=== PATIENT | female | born 1980 | race Caucasian/White ===

== ENCOUNTER 2018-03-24 12:29 | Inpatient (IN) | payer OTHER ==
[~2018-03-24] VITALS: Ht 157.5 cm; Wt 84.4 kg
[~2018-03-24 12:29] MED LIST: AZAT50TA20 PO; FLUO20CA16 PO; MEDR150D3 IM; PRED20TA PO
[2018-03-24] MEDS ORDERED: ONDANSETRON PF 4 MG/2 ML VIAL. IV ONE (13:45)
[2018-03-24] MEDS ORDERED: fentaNYL PF VIAL 100 MCG/2 ML VIAL IV ONE (13:45)
[2018-03-24] MEDS ORDERED: IV NORMAL SALINE 1000ML BAG 1,000 ML IV ONE (13:45)
--- NOTE | 2018-03-24 13:46 | PHYS DOC ---
Past Medical History Past Medical History: Depression, Other Additional Past Medical Histor: chrons Past Surgical History: Tonsillectomy, Other Additional Past Surgical Histo: rectal abscess I&D Alcohol Use: Occasionally Drug Use: None Adult General Chief Complaint Chief Complaint: ABDOMINAL PAIN HPI HPI 37-year-old female presents to ER for complaints of left lower abdominal pain. [facility] and was found to have a fever of 102 and so she was sent to the ER for evaluation. Patient reports she has history of Crohn's and since mid February has been having increased lower abdominal pain. Patient states she had CT of abdomen and pelvis on 03/03/18 which showed pyelonephritis and so she was treated with Levaquin. Patient states pain increased so she was seen in the ER at [facility] on and was started on Flagyl for one week treatment. Patient reports she had been on prednisone tapered dose and has been off of that for 1 week. Patient has Mirena so does not have monthly menstrual cycles. Patient states she did colonoscopy prep last night and has had 1 episode of vomiting this morning. Patient at triage had temperature 98.6 which was rechecked during this evaluation by this provider and oral temperature was 98.6 again. Heart rate tachycardia 106 during exam. Patient is requesting admission. Review of Systems Review of Systems Constitutional: Reported [facility] Eyes: Denies change in visual acuity, redness, or eye pain [] HENT: Denies nasal congestion or sore throat [] Respiratory: Denies cough or shortness of breath [] Cardiovascular: Denies chest pain or palpitations GI: Denies bloody stools or diarrhea. Reports lower abd pain- worse on left side with N/V : Denies dysuria or hematuria [] Musculoskeletal: Denies back pain or joint pain [] Integument: Denies rash, swelling or skin lesions [] Neurologic: Denies headache, focal weakness or sensory changes [] All other systems were reviewed and found to be within normal limits, except as documented in this note. Current Medications Current Medications Current Medications Medications (Trade) Dose Ordered Sig/Dean Start Time Stop Time Status Last Admin Dose Admin Acetaminophen/ Hydrocodone Bitart (Lortab 5/325) 1 tab PRN Q4HRS PRN 03/24/18 16:30 Cancel Al Hydroxide/Mg Hydroxide (Mylanta Plus Xs) 30 ml PRN Q3HRS PRN 03/24/18 16:30 Ciprofloxacin/ Dextrose 200 ml @ 200 mls/hr 1X ONCE 03/24/18 17:15 03/24/18 18:14 UNV Fentanyl Citrate (Fentanyl 2ml Vial) 50 mcg 1X ONCE 03/24/18 13:45 03/24/18 13:46 DC 03/24/18 14:26 50 MCG Info (CONTRAST GIVEN -- Rx MONITORING) 1 each PRN DAILY PRN 03/24/18 15:30 03/26/18 15:29 Info (Non-Icu Electrolyte Protocol) 1 ea PRN DAILY PRN 03/24/18 16:30 Iohexol (Omnipaque 300 Mg/ml) 75 ml 1X ONCE 03/24/18 15:15 03/24/18 15:16 DC Magnesium Hydroxide (Milk Of Magnesia) 2,400 mg PRN Q12HR PRN 03/24/18 16:30 Metronidazole 100 ml @ 100 mls/hr 1X ONCE 03/24/18 17:15 03/24/18 18:14 UNV Ondansetron HCl (Zofran) 4 mg PRN Q6HRS PRN 03/24/18 16:30 Potassium Chloride/Dextrose/ Sod Cl 1,000 ml @ 75 mls/hr 1X ONCE 03/24/18 17:00 03/25/18 06:19 03/24/18 17:39 75 MLS/HR Prochlorperazine Edisylate (Compazine) 10 mg PRN Q6HRS PRN 03/24/18 16:30 Sodium Chloride 1,000 ml @ 100 mls/hr Q10H 03/24/18 16:17 Zolpidem Tartrate (Ambien) 5 mg PRN QHS PRN 03/24/18 16:30 Allergies Allergies Allergies Coded Allergies Type Severity Reaction Last Updated Verified No Known Drug Allergies 05/13/13 No Physical Exam Physical Exam Constitutional: Well developed, well nourished, no acute distress, non-toxic appearance. Flushed facial tone/fatigued appearance HENT: Normocephalic, atraumatic, mucous membranes pink/dry, nose normal. [] Eyes: Pupils equal, conjunctiva normal, no discharge. [] Neck: Normal range of motion, no tenderness, supple, no stridor. [] Cardiovascular: Tachycardic heart rate/rhythm, no murmur [] Lungs & Thorax: Bilateral breath sounds clear to auscultation. Resp. equal/ nonlabored Abdomen: Bowel sounds normal, soft-no distention or rigidity, tenderness from mid umbilical into left side abdomen pain is worse in left lower quadrant, no rebound tenderness, no masses, no pulsatile masses. [] Skin: Warm, dry Back: No tenderness, no CVA tenderness. [] Extremities: No tenderness, no cyanosis, no clubbing, ROM intact, no edema. [] Neurologic: Alert and oriented X 3, normal motor function, normal sensory function, no focal deficits noted. [] Psychologic: Affect normal, judgement normal, mood normal. [] Current Patient Data Vital Signs Vital Signs Date Time Temp Pulse Resp B/P (MAP) Pulse Ox O2 Delivery O2 Flow Rate FiO2 03/24/18 17:29 96 16 118/69 (85) 99 Room Air 03/24/18 14:59 99.2 99.2 Lab Values Laboratory Tests Test 03/24/18 12:51 03/24/18 14:01 03/24/18 14:15 Urine Collection Type Unknown Urine Color Raven Urine Clarity Turbid Urine pH 8.0 Urine Specific [place] 1.020 Urine Protein 30 mg/dL (NEG-TRACE) Urine Glucose (UA) Negative mg/dL (NEG) Urine Ketones (Stick) 40 mg/dL (NEG) Urine Blood Moderate (NEG) Urine Nitrite Negative (NEG) Urine Bilirubin Small (NEG) Urine Urobilinogen Dipstick 0.2 mg/dL (0.2 mg/dL) Urine Leukocyte Esterase Small (NEG) Urine RBC Rare /HPF (0-2) Urine WBC 1-4 /HPF (0-4) Urine Squamous Epithelial Cells Mod /LPF Urine Bacteria Moderate /HPF (0-FEW) POC Urine HCG, Qualitative Hcg negative (Negative) White Blood Count 13.1 x10^3/uL (4.0-11.0) H Red Blood Count 4.43 x10^6/uL (3.50-5.40) Hemoglobin 13.3 g/dL (12.0-15.5) Hematocrit 38.2 % (36.0-47.0) Mean Corpuscular Volume 86 fL (79-100) Mean Corpuscular Hemoglobin 30 pg (25-35) Mean Corpuscular Hemoglobin Concent 35 g/dL (31-37) Red Cell Distribution Width 13.6 % (11.5-14.5) Platelet Count 394 x10^3/uL (140-400) Neutrophils (%) (Auto) 70 % (31-73) Lymphocytes (%) (Auto) 20 % (24-48) L Monocytes (%) (Auto) 10 % (0-9) H Eosinophils (%) (Auto) 0 % (0-3) Basophils (%) (Auto) 0 % (0-3) Neutrophils # (Auto) 9.1 x10^3uL (1.8-7.7) H Lymphocytes # (Auto) 2.6 x10^3/uL (1.0-4.8) Monocytes # (Auto) 1.3 x10^3/uL (0.0-1.1) H Eosinophils # (Auto) 0.1 x10^3/uL (0.0-0.7) Basophils # (Auto) 0.1 x10^3/uL (0.0-0.2) Sodium Level 141 mmol/L (136-145) Potassium Level 3.2 mmol/L (3.5-5.1) L Chloride Level 102 mmol/L (98-107) Carbon Dioxide Level 30 mmol/L (21-32) Anion Gap 9 (6-14) Blood Urea Nitrogen 8 mg/dL (7-20) Creatinine 0.8 mg/dL (0.6-1.0) Estimated GFR (Cockcroft-Gault) 81.6 BUN/Creatinine Ratio 10 (6-20) Glucose Level 82 mg/dL (70-99) Calcium Level 9.0 mg/dL (8.5-10.1) Total Bilirubin 0.4 mg/dL (0.2-1.0) Aspartate Amino Transferase (AST) 12 U/L (15-37) L Alanine Aminotransferase (ALT) 17 U/L (14-59) Alkaline Phosphatase 88 U/L (46-116) Total Protein 7.6 g/dL (6.4-8.2) Albumin 2.7 g/dL (3.4-5.0) L Albumin/Globulin Ratio 0.6 (1.0-1.7) L Lipase 43 U/L (73-393) L Thyroid Stimulating Hormone (TSH) 0.083 uIU/mL (0.358-3.74) L Free Thyroxine 1.19 ng/dL (0.76-1.46) Laboratory Tests 03/24/18 14:15 Laboratory Tests 03/24/18 14:15 EKG EKG [] Radiology/Procedures Radiology/Procedures PROCEDURE: CT ABD PELV W/ IV CONTRST ONLY EXAM: Abdomen and pelvis CT with intravenous contrast. HISTORY: Left lower quadrant pain. TECHNIQUE: Computed tomographic images of the abdomen and pelvis were obtained following the administration of 75 cc Omnipaque 300 intravenous contrast. Multiplanar reformatting was performed. *One or more of the following individualized dose reduction techniques were utilized for this examination: 1. Automated exposure control. 2. Adjustment of the mA and/or kV according to patient size. 3. Use of iterative reconstruction technique. COMPARISON: 05/13/2013. FINDINGS: Evaluation of the lower thorax demonstrates right middle lobe and lingular atelectasis or scarring. There is no infiltrate or pleural effusion. There is a 2.8 cm hypodense lesion within the right hepatic lobe adjacent to the falciform ligament, stable compared to the prior study and possibly due to geographic fatty deposition. The pancreas, gallbladder, spleen, and adrenal glands are unremarkable. There is renal cortical lobulation due to scarring. There is a 1 mm nonobstructing stone within the mid zone of the right kidney. There is no appendicitis. There is circumferential colonic wall thickening with surrounding pericolic stranding from the proximal transverse colon to the rectosigmoid junction. There is no clear involvement of the terminal ileum. There are prominent retroperitoneal and mesenteric lymph nodes. There is an intrauterine contraceptive device in expected position. The ovaries are located within the bilateral lower quadrants. There is no suspicious osseous lesion. IMPRESSION: 1. Acute colitis of infectious or inflammatory etiologies from the proximal transverse colon to the rectosigmoid junction. There is no clear involvement of the terminal ileum. There are prominent associated pericolonic lymph nodes. 2. Bilateral renal cortical lobulation likely due to scarring. There is a 1 mm nonobstructing stone within the right kidney. 3. Stable 2.8 cm hypodense lesion within the right hepatic lobe along the falciform ligament. The nearly 5 year course of stability favors benign geographic fatty infiltration. This can likely be confirmed with a hepatic sonogram. Electronically signed by: Vaishali Allen MD (03/24/2018 3:39 PM) [facility] DICTATED and SIGNED BY: VAISHALI ALLEN MD DATE: 03/24/18 1534 Course & Med Decision Making Course & Med Decision Making Pertinent Labs and Imaging studies reviewed. (See chart for details) 1455: Patient reports she is feeling slightly better after pain medication. IV fluids are infusing. Labs are pending. Patient's heart rate remains 110 she reports this is her normal heart rate. Patient was evaluated in the ER for complaints of abdominal pain and fever. Was given IV fluids, nausea and pain medication reporting her symptoms had improved. Patient facial tone improved following fluids and patient remains nontoxic in appearance. Discussed patient's test results with her with CT results showing acute colitis- WBCs at 13.1 no bands; K+ at 3.2- keeping pt NPO so held on oral replacement; UA with 40 ketones which UA was obtained prior to IV flds- moderate blood/sm leuks/neg. nitrates- UCG neg. Discussed plans for admission to hospitalist services and she is agreeable with this plan. Will start IV Flagyl and Cipro while in the ER. Patient reports she is feeling much better following IV fluids and treatments received. Patient is agreeable with admission plan. Will consult GI with admit orders. 1615: Spoke with Dr. Shah, hospitalist and discussed pt's case and admit plan. Dragon Disclaimer Dragon Disclaimer This electronic medical record was generated, in whole or in part, using a voice recognition dictation system. Departure Departure Impression: Primary Impression: Acute colitis Disposition: ADMITTED INPATIENT Admitting Physician: Other Condition: STABLE (Dr. Shah) Referrals: CECIL STANLEY MD (PCP) JAMAR MENDOZA APRN Mar 24, 2018 13:46
[2018-03-24 14:28] LABS: BILIRUBIN,URINE SMALL (NEG); CLARITY,URINE TURBID; COLOR,URINE AMBER; NITRITE,URINE NEGATIVE (NEG); PROTEIN,URINE 30 mg/dL (NEG-TRACE); UROBILINOGEN,URINE 0.2 mg/dL (0.2 mg/dL)
[2018-03-24 14:48] LABS: BASO # 0.1 x10^3/uL (0.0-0.2); BASO % 0 % (0-3); EOS # 0.1 x10^3/uL (0.0-0.7); EOS % 0 % (0-3); HEMATOCRIT 38.2 % (36.0-47.0); HEMOGLOBIN 13.3 g/dL (12.0-15.5); LYMPH # 2.6 x10^3/uL (1.0-4.8); LYMPH % 20 % (24-48); MEAN CORPUSCULAR HEMOGLOBIN 30 pg (25-35); MEAN CORPUSCULAR HGB CONC 35 g/dL (31-37); MEAN CORPUSCULAR VOLUME 86 fL (79-100); MONO # 1.3 x10^3/uL (0.0-1.1); MONO % 10 % (0-9); NEUT # 9.1 x10^3uL (1.8-7.7); NEUT % 70 % (31-73); PLATELET COUNT 394 x10^3/uL (140-400); RED BLOOD COUNT 4.43 x10^6/uL (3.50-5.40); RED CELL DISTRIBUTION WIDTH 13.6 % (11.5-14.5); WHITE BLOOD COUNT 13.1 x10^3/uL (4.0-11.0)
[2018-03-24 14:55] LABS: CREATININE 0.8 mg/dL (0.6-1.0); GFR 81.6; POTASSIUM 3.2 mmol/L (3.5-5.1)
[2018-03-24 14:57] LABS: BACTERIA,URINE MODERATE /HPF (0-FEW); SQUAMOUS EPITHELIAL CELL,UR MOD /LPF
[2018-03-24 14:58] LABS: RBC,URINE RARE /HPF (0-2)
[2018-03-24 15:02] LABS: ALBUMIN 2.7 g/dL (3.4-5.0); ALBUMIN/GLOBULIN RATIO 0.6 (1.0-1.7); TOTAL BILIRUBIN 0.4 mg/dL (0.2-1.0); TOTAL PROTEIN 7.6 g/dL (6.4-8.2)
[2018-03-24] MEDS ORDERED: IOHEXOL 300 MG/ML 100ML VIAL. IV ONE (15:15)
[2018-03-24] MEDS ORDERED: CONTRAST GIVEN. MC PRN (15:30)
--- NOTE | 2018-03-24 15:43 | RAD ---
EXAM: Abdomen and pelvis CT with intravenous contrast. HISTORY: Left lower quadrant pain. TECHNIQUE: Computed tomographic images of the abdomen and pelvis were obtained following the administration of 75 cc Omnipaque 300 intravenous contrast. Multiplanar reformatting was performed. *One or more of the following individualized dose reduction techniques were utilized for this examination: 1. Automated exposure control. 2. Adjustment of the mA and/or kV according to patient size. 3. Use of iterative reconstruction technique. COMPARISON: 05/13/2013. FINDINGS: Evaluation of the lower thorax demonstrates right middle lobe and lingular atelectasis or scarring. There is no infiltrate or pleural effusion. There is a 2.8 cm hypodense lesion within the right hepatic lobe adjacent to the falciform ligament, stable compared to the prior study and possibly due to geographic fatty deposition. The pancreas, gallbladder, spleen, and adrenal glands are unremarkable. There is renal cortical lobulation due to scarring. There is a 1 mm nonobstructing stone within the mid zone of the right kidney. There is no appendicitis. There is circumferential colonic wall thickening with surrounding pericolic stranding from the proximal transverse colon to the rectosigmoid junction. There is no clear involvement of the terminal ileum. There are prominent retroperitoneal and mesenteric lymph nodes. There is an intrauterine contraceptive device in expected position. The ovaries are located within the bilateral lower quadrants. There is no suspicious osseous lesion. IMPRESSION: 1. Acute colitis of infectious or inflammatory etiologies from the proximal transverse colon to the rectosigmoid junction. There is no clear involvement of the terminal ileum. There are prominent associated pericolonic lymph nodes. 2. Bilateral renal cortical lobulation likely due to scarring. There is a 1 mm nonobstructing stone within the right kidney. 3. Stable 2.8 cm hypodense lesion within the right hepatic lobe along the falciform ligament. The nearly 5 year course of stability favors benign geographic fatty infiltration. This can likely be confirmed with a hepatic sonogram. Electronically signed by: Vaishali Wilson MD (03/24/2018 3:39 PM) [place] [id number]
[2018-03-24] MEDS: IV 1/2 NORMAL SALINE 1,000 ML IV SCH (16:17)
[2018-03-24] MEDS ORDERED: PROCHLORPERAZINE 10 MG/2 ML VIAL. IV PRN (16:30)
[2018-03-24] MEDS ORDERED: MAG HYDROX/ALUMINUM HYD/SIMETH 30 ML ORAL.SUSP PO PRN (16:30)
[2018-03-24] MEDS ORDERED: ZOLPIDEM 5 MG TABLET. PO PRN (16:30)
[2018-03-24] MEDS ORDERED: ELECTROLYTE (NON-ICU) PROTOCOL MC PRN (16:30)
[2018-03-24] MEDS ORDERED: ONDANSETRON PF 4 MG/2 ML VIAL. IV PRN (16:30)
[2018-03-24] MEDS ORDERED: MAGNESIUM HYDROXIDE 2,400 MG/30 ML ORAL.SUSP. PO PRN (16:30)
[2018-03-24] MEDS ORDERED: HYDROcodone/APAP 5/325MG 1 TAB TABLET PO PRN (16:30)
[2018-03-24] MEDS ORDERED: CIPROFLOXACIN 400MG PREMIX 200 ML IV ONE ×2 (16:45→17:15)
[2018-03-24] MEDS ORDERED: POTASSIUM CL 30MEQ D5-0.45NACL 1,000 ML IV ONE (17:00)
--- NOTE | 2018-03-24 17:01 | PDOC1 ---
History and Physical Date of Admission Date of Admission DATE: 03/24/18 TIME: 16:41 Identification/Chief Complaint Chief Complaint fever, nausea, vomiting, abdominal pain Problems: (1) Diarrhea Source Source: Chart review, Patient History of Present Illness History of Present Illness 37 year old CF with Pmhx of Crohn's Disease since 2008, bx proven, complicated by rectal abscess maintained on Humara who presents with LLQ pain since one month. patient was scheduled for colo today by Dr. Tavarez but found to have a fever of 102 so sent to the ED for eval. patient recently treated with levaquin for pyelonephritis after CT on 03/03 and treated for Crohns flare with flagyl and steroid taper on 03/06. patient states she only took 5 days of flagyl bc it made abdominal pain worse. reports diarrhea nausea and vomiting. non-bloody, non -billous. patient has not followed up with outpatient GI since December 2017. patient found to be tachycardic on admission with HR 106. BP stable. hospitalist called for admission for further eval and treatment. Flagyl/Cipro IV started in ED. Past Medical History Past Medical History Crohn's Dz since 2008 maintained currently on Humara Depression Hx of rectal abscess drained 2009 Tonsillectomy Family History Family History: Other (denies) Social History Smoke: No ALCOHOL: none Drugs: None Current Medications Current Medications Current Medications Ondansetron HCl (Zofran) 4 mg 1X ONCE IV Last administered on 03/24/18at 14:26; Start 03/24/18 at 13:45; Stop 03/24/18 at 13:46; Status DC Fentanyl Citrate (Fentanyl 2ml Vial) 50 mcg 1X ONCE IV Last administered on 03/24/18at 14:26; Start 03/24/18 at 13:45; Stop 03/24/18 at 13:46; Status DC Sodium Chloride 1,000 ml @ 1,000 mls/hr 1X ONCE IV Last administered on at 14:24; Start 03/24/18 at 13:45; Stop 03/24/18 at 14:44; Status DC Iohexol (Omnipaque 300 Mg/ml) 75 ml 1X ONCE IV ; Start 03/24/18 at 15:15; Stop 03/24/18 at 15:16; Status DC Info (CONTRAST GIVEN -- Rx MONITORING) 1 each PRN DAILY PRN MC SEE COMMENTS; Start 03/24/18 at 15:30; Stop 03/26/18 at 15:29 Sodium Chloride 1,000 ml @ 100 mls/hr Q10H IV ; Start 03/24/18 at 16:17 Ondansetron HCl (Zofran) 4 mg PRN Q6HRS PRN IV NAUSEA/VOMITING, 1ST CHOICE; Start 03/24/18 at 16:30 Prochlorperazine Edisylate (Compazine) 10 mg PRN Q6HRS PRN IV NAUSEA/VOMITING, 2ND CHOICE; Start 03/24/18 at 16:30 Al Hydroxide/Mg Hydroxide (Mylanta Plus Xs) 30 ml PRN Q3HRS PRN PO HEARTBURN / GAS; Start 03/24/18 at 16:30 Zolpidem Tartrate (Ambien) 5 mg PRN QHS PRN PO INSOMNIA, MAY REPEAT IN 1HR; Start 03/24/18 at 16:30 Info (Non-Icu Electrolyte Protocol) 1 ea PRN DAILY PRN MC SEE COMMENTS; Start 03/24/18 at 16:30 Acetaminophen/ Hydrocodone Bitart (Lortab 5/325) 1 tab PRN Q4HRS PRN PO MILD PAIN; Start 03/24/18 at 16:30 Acetaminophen/ Hydrocodone Bitart (Lortab 5/325) 1 tab PRN Q4HRS PRN PO MILD PAIN, 2ND CHOICE; Start 03/24/18 at 16:30 Magnesium Hydroxide (Milk Of Magnesia) 2,400 mg PRN Q12HR PRN PO CONSTIPATION; Start 03/24/18 at 16:30 Heparin Sodium (Porcine) (Heparin Sodium) 5,000 unit Q8HRS SQ ; Start 03/24/18 at 22:00 Fluoxetine HCl (PROzac) 20 mg DAILY PO ; Start 03/25/18 at 09:00 Active Scripts Active Reported Depo-Provera (Medroxyprogesterone Acetate) 150 Mg/1 Ml Disp.syrin 150 Mg IM Prednisone 20 Mg Tablet 20 Mg PO Prozac (Fluoxetine Hcl) 20 Mg Capsule 20 Mg PO Imuran (Azathioprine) 50 Mg Tablet 50 Mg PO Allergies Allergies: Coded Allergies: No Known Drug Allergies (Unverified , 05/13/13) ROS Review of System CONSTITUTIONAL: No fever or chills EYES: No recent changes SKIN: No rash or itching CARDIOVASCULAR: No chest pain, syncope, palpitations, or edema RESPIRATORY: No SOB or cough GASTROINTESTINAL: No nausea, vomiting or abdominal pain NEUROLOGICAL: No headaches or weakness ENDOCRINE: No cold or heat intolerance GENITOURINARY: No urgency or frequency of urination MUSCULOSKELETAL: No back pain or joint pain LYMPHATICS: No enlarged lymph nodes PSYCHIATRIC: No anxiety or depression Physical Exam Physical Exam GENERAL: No apparent distress. Alert and oriented. HEENT: Head normocephalic, atraumatic. NECK: Supple LUNGS: Clear to auscultation. HEART: RRR, S1, S2 present, pulses intact ABDOMEN: Soft, positive bowel sounds, tender in RLQ EXTREMITIES: No cyanosis or edema. NEUROLOGIC: Normal speech, normal tone PSYCHIATRIC: Normal affect, normal mood. SKIN: No ulceration. Vitals Vitals Vital Signs Date Time Temp Pulse Resp B/P (MAP) Pulse Ox O2 Delivery O2 Flow Rate FiO2 03/24/18 13:04 98.6 104 16 113/80 (91) 96 Room Air 98.6 Labs Labs Laboratory Tests Test 03/24/18 12:51 03/24/18 14:01 03/24/18 14:15 Urine Collection Type Unknown Urine Color [place] Urine Clarity Turbid Urine pH 8.0 Urine Specific [place] 1.020 Urine Protein 30 mg/dL (NEG-TRACE) Urine Glucose (UA) Negative mg/dL (NEG) Urine Ketones (Stick) 40 mg/dL (NEG) Urine Blood Moderate (NEG) Urine Nitrite Negative (NEG) Urine Bilirubin Small (NEG) Urine Urobilinogen Dipstick 0.2 mg/dL (0.2 mg/dL) Urine Leukocyte Esterase Small (NEG) Urine RBC Rare /HPF (0-2) Urine WBC 1-4 /HPF (0-4) Urine Squamous Epithelial Cells Mod /LPF Urine Bacteria Moderate /HPF (0-FEW) Bedside Urine HCG, Qualitative Hcg negative (Negative) White Blood Count 13.1 x10^3/uL (4.0-11.0) Red Blood Count 4.43 x10^6/uL (3.50-5.40) Hemoglobin 13.3 g/dL (12.0-15.5) Hematocrit 38.2 % (36.0-47.0) Mean Corpuscular Volume 86 fL (79-100) Mean Corpuscular Hemoglobin 30 pg (25-35) Mean Corpuscular Hemoglobin Concent 35 g/dL (31-37) Red Cell Distribution Width 13.6 % (11.5-14.5) Platelet Count 394 x10^3/uL (140-400) Neutrophils (%) (Auto) 70 % (31-73) Lymphocytes (%) (Auto) 20 % (24-48) Monocytes (%) (Auto) 10 % (0-9) Eosinophils (%) (Auto) 0 % (0-3) Basophils (%) (Auto) 0 % (0-3) Neutrophils # (Auto) 9.1 x10^3uL (1.8-7.7) Lymphocytes # (Auto) 2.6 x10^3/uL (1.0-4.8) Monocytes # (Auto) 1.3 x10^3/uL (0.0-1.1) Eosinophils # (Auto) 0.1 x10^3/uL (0.0-0.7) Basophils # (Auto) 0.1 x10^3/uL (0.0-0.2) Sodium Level 141 mmol/L (136-145) Potassium Level 3.2 mmol/L (3.5-5.1) Chloride Level 102 mmol/L (98-107) Carbon Dioxide Level 30 mmol/L (21-32) Anion Gap 9 (6-14) Blood Urea Nitrogen 8 mg/dL (7-20) Creatinine 0.8 mg/dL (0.6-1.0) Estimated GFR (Cockcroft-Gault) 81.6 BUN/Creatinine Ratio 10 (6-20) Glucose Level 82 mg/dL (70-99) Calcium Level 9.0 mg/dL (8.5-10.1) Total Bilirubin 0.4 mg/dL (0.2-1.0) Aspartate Amino Transf (AST/SGOT) 12 U/L (15-37) Alanine Aminotransferase (ALT/SGPT) 17 U/L (14-59) Alkaline Phosphatase 88 U/L (46-116) Total Protein 7.6 g/dL (6.4-8.2) Albumin 2.7 g/dL (3.4-5.0) Albumin/Globulin Ratio 0.6 (1.0-1.7) Lipase 43 U/L (73-393) Laboratory Tests Test 03/24/18 12:51 03/24/18 14:01 03/24/18 14:15 Urine Collection Type Unknown Urine Color [place] Urine Clarity Turbid Urine pH 8.0 Urine Specific [place] 1.020 Urine Protein 30 mg/dL (NEG-TRACE) Urine Glucose (UA) Negative mg/dL (NEG) Urine Ketones (Stick) 40 mg/dL (NEG) Urine Blood Moderate (NEG) Urine Nitrite Negative (NEG) Urine Bilirubin Small (NEG) Urine Urobilinogen Dipstick 0.2 mg/dL (0.2 mg/dL) Urine Leukocyte Esterase Small (NEG) Urine RBC Rare /HPF (0-2) Urine WBC 1-4 /HPF (0-4) Urine Squamous Epithelial Cells Mod /LPF Urine Bacteria Moderate /HPF (0-FEW) Bedside Urine HCG, Qualitative Hcg negative (Negative) White Blood Count 13.1 x10^3/uL (4.0-11.0) Red Blood Count 4.43 x10^6/uL (3.50-5.40) Hemoglobin 13.3 g/dL (12.0-15.5) Hematocrit 38.2 % (36.0-47.0) Mean Corpuscular Volume 86 fL (79-100) Mean Corpuscular Hemoglobin 30 pg (25-35) Mean Corpuscular Hemoglobin Concent 35 g/dL (31-37) Red Cell Distribution Width 13.6 % (11.5-14.5) Platelet Count 394 x10^3/uL (140-400) Neutrophils (%) (Auto) 70 % (31-73) Lymphocytes (%) (Auto) 20 % (24-48) Monocytes (%) (Auto) 10 % (0-9) Eosinophils (%) (Auto) 0 % (0-3) Basophils (%) (Auto) 0 % (0-3) Neutrophils # (Auto) 9.1 x10^3uL (1.8-7.7) Lymphocytes # (Auto) 2.6 x10^3/uL (1.0-4.8) Monocytes # (Auto) 1.3 x10^3/uL (0.0-1.1) Eosinophils # (Auto) 0.1 x10^3/uL (0.0-0.7) Basophils # (Auto) 0.1 x10^3/uL (0.0-0.2) Sodium Level 141 mmol/L (136-145) Potassium Level 3.2 mmol/L (3.5-5.1) Chloride Level 102 mmol/L (98-107) Carbon Dioxide Level 30 mmol/L (21-32) Anion Gap 9 (6-14) Blood Urea Nitrogen 8 mg/dL (7-20) Creatinine 0.8 mg/dL (0.6-1.0) Estimated GFR (Cockcroft-Gault) 81.6 BUN/Creatinine Ratio 10 (6-20) Glucose Level 82 mg/dL (70-99) Calcium Level 9.0 mg/dL (8.5-10.1) Total Bilirubin 0.4 mg/dL (0.2-1.0) Aspartate Amino Transf (AST/SGOT) 12 U/L (15-37) Alanine Aminotransferase (ALT/SGPT) 17 U/L (14-59) Alkaline Phosphatase 88 U/L (46-116) Total Protein 7.6 g/dL (6.4-8.2) Albumin 2.7 g/dL (3.4-5.0) Albumin/Globulin Ratio 0.6 (1.0-1.7) Lipase 43 U/L (73-393) VTE Prophylaxis Ordered VTE Prophylaxis Devices: No VTE Pharmacological Prophylaxi: Yes Assessment/Plan Assessment/Plan ASSESSMENT: Nausea, Vomiting Diarrhea Secondary to Acute Crohn's Flare Hypokalemia Leukocytosis secondary to Colitis/recent steroid use Tachycardia secondary to volume depletion. PLAN: admit to medical floor bed anti-emetics for nausea and vomiting start Flagyl and Cipro. defer steroid initiation to GI on Humara check c diff and stool studies pain control with hydrocodone prn CT abdomen: Acute colitis of infectious or inflammatory etiologies from the proximal transverse colon to the rectosigmoid junction. There is no clear involvement of the terminal ileum CLD for now, NPO past midnight replace K via IV route follow CBC given slight leukocytosis IV fluids for volume depletion check TFTs given tachycardia DVT ppx: heparin full code Problem Qualifiers (1) Diarrhea: Diarrhea type: infectious Qualified Codes: A09 - Infectious gastroenteritis and colitis, unspecified EZ JOAQUIN MD Mar 24, 2018 17:01
[2018-03-24 17:34] LABS: FREE T4 1.19 ng/dL (0.76-1.46); THYROID STIM HORMONE (TSH) 0.083 uIU/mL (0.358-3.74)
[2018-03-24] MEDS: HYDROcodone/APAP 5/325MG 1 TAB TABLET PO PRN (17:57)
--- NOTE | 2018-03-24 18:25 | NUR ---
The patient, JAVIER CORTEZ, 37 y/o, F admitted by EZ JOAQUIN MD, was given written information regarding hospital policies, unit procedures and contact persons. Valuables were checked and LEFT IN PATIENTS ROOM WITH PATIENT.
[2018-03-24] MEDS: HEPARIN for SUB-Q USE 5,000 UNIT/ML VIAL. SQ SCH (21:01)
[2018-03-24] MEDS ORDERED: VENL150C PO (22:26)
[2018-03-24] MEDS ORDERED: ADAL40PE2 SQ (22:26)
[2018-03-24 22:59] VITALS: BP 102/55
[2018-03-24] MEDS: PIPERACILLIN/TAZOBACTAM 3.375 GM in IV NORMAL SALINE 50ML 50 ML IV SCH (23:56)
[2018-03-25 03:00] VITALS: BP 97/63
[2018-03-25 04:29] LABS: BASO # 0.1 x10^3/uL (0.0-0.2); BASO % 1 % (0-3); EOS # 0.2 x10^3/uL (0.0-0.7); EOS % 1 % (0-3); HEMATOCRIT 33.5 % (36.0-47.0); HEMOGLOBIN 11.6 g/dL (12.0-15.5); LYMPH # 3.3 x10^3/uL (1.0-4.8); LYMPH % 29 % (24-48); MEAN CORPUSCULAR HEMOGLOBIN 30 pg (25-35); MEAN CORPUSCULAR HGB CONC 35 g/dL (31-37); MEAN CORPUSCULAR VOLUME 86 fL (79-100); MONO # 1.5 x10^3/uL (0.0-1.1); MONO % 13 % (0-9); NEUT # 6.3 x10^3uL (1.8-7.7); NEUT % 56 % (31-73); PLATELET COUNT 343 x10^3/uL (140-400); RED BLOOD COUNT 3.89 x10^6/uL (3.50-5.40); RED CELL DISTRIBUTION WIDTH 13.3 % (11.5-14.5); WHITE BLOOD COUNT 11.3 x10^3/uL (4.0-11.0)
[2018-03-25] MEDS: PIPERACILLIN/TAZOBACTAM 3.375 GM in IV NORMAL SALINE 50ML 50 ML IV SCH (05:39)
[2018-03-25] MEDS: IV 1/2 NORMAL SALINE 1,000 ML IV SCH (05:41)
[2018-03-25] MEDS: HEPARIN for SUB-Q USE 5,000 UNIT/ML VIAL. SQ SCH (05:42)
[2018-03-25 06:48] LABS: CALCIUM 8.4 mg/dL (8.5-10.1); CREATININE 0.7 mg/dL (0.6-1.0); GFR 95.2; POTASSIUM 3.4 mmol/L (3.5-5.1)
[2018-03-25 07:00] VITALS: BP 90/48
[2018-03-25] MEDS: FLUoxetine HCL 20 MG CAPSULE PO SCH ×2 (08:50→08:54)
[2018-03-25] MEDS: HYDROcodone/APAP 5/325MG 1 TAB TABLET PO PRN ×3 (08:51→20:42)
[2018-03-25] MEDS ORDERED: CIPROFLOXACIN 400MG PREMIX 200 ML IV SCH (09:00)
--- NOTE | 2018-03-25 09:15 | PDOC2 ---
GI CONSULT Reason For Consult: Colitis, Crohn's flare HPI: HPI: 37 y/o female w/ h/o Crohn's diagnosed in 2008 (reports had diarrhea and bleeding); office records indicate ileitis w/ mild colitis throughout the colon. Last colonoscopy in 03/2013 showed Crohn's in whole colon and terminal ileum. Has been treated w/ Imuran, mesalamines, and mostly recently Humira ( says started in 12/2017, last dose on 03/19/18). Has used Uceris and prednisone - just finished prednisone taper ~2 weeks ago. Has been ill since 12/2017 w/ diarrhea - says initially 10-20 stools daily, now improved to 3-4 mushy stools daily (some w/ mucous and a little red blood). Tells me did not have stool studies. Associated with severe LLQ pain since 02/2018 - intermittent, related to stooling, associated w/ vomiting, once spread to RLQ. Hydrocodone at home didn't help much. Had a CT A[facility] 03[facility]03/18 which showed striated nephrogram suspicious for pyelonephritis, nonobstructing punctate calculus right kidney, minimal enhancement involving the descending and sigmoid colon possibly related to h/o Crohn's (no inflammatory change or wall thickening ), and noncalcified 0.8cm splenic artery aneurysm. Reports treatment w/ Levaquin for pyelonephritis w/ negative UA. LLQ pain persisted so she went to the ER at [facility] where she reports a CT was unrevealing and she was given Rx for Flagyl which made the pain worse. Was scheduled for colonoscopy yesterday w/ Dr. Tavarez; during/after prep the day before, had chills and sweats w/ significant LLQ pain. At [facility], was told had a fever of 102 and sent to ER. Tmax here 99.2, initially mild tachycardia (HR now WNL). WBC 13.1 to 11.3. Hgb 11.6 this morning. Given Flagyl and Cipro, then changed to Zosyn (as apparently developed some redness after Cipro). Stool tests ordered. On CT: colitis from proximal transverse to rectosigmoid junction w/ associated pericolonic lymph nodes. Also noted stable right hepatic lesion (suspect benign geographic fatty infiltration). Says she hasn't required pain meds in awhile and currently doesn't have much pain. Last stool was small last night. Denies nausea, reflux/heartburn, dysphagia, hematemesis, melena, and constipation. Estimates 5 pound weight loss since 12/2017 - has possibly avoided eating some in hopes to avoid diarrhea/pain. Would like a colonoscopy but wants to be sure it's safe. She is a nurse at [employer]. PMH: PMH: depression, Crohn's, nephrolithiasis tonsillectomy, rectal abscess I&D FH: Family History: No pertinent hx (denies GI cancers, IBD) Social History: Smoke: 1 pack per day ALCOHOL: occassional Drugs: None ROS: GEN: +fevers +chills +sweats HEENT: Denies blurred vision, sore throat CV: Denies chest pain RESP: Denies shortness of air, cough GI: Per HPI : Denies hematuria, dysuria ENDO: +weight loss NEURO: Denies confusion, dizziness MSK: Denies weakness, joint pain/swelling SKIN: Denies jaundice, pruritus Vitals: Vitals: Vital Signs Date Time Temp Pulse Resp B/P (MAP) Pulse Ox O2 Delivery O2 Flow Rate FiO2 03/25/18 08:51 20 97 Room Air 03/25/18 07:00 98.0 80 90/48 (62) 98.0 Labs: Labs: Laboratory Tests Test 03/24/18 12:51 03/24/18 14:01 03/24/18 14:15 03/25/18 03:50 Urine Collection Type Unknown Urine Color Raven Urine Clarity Turbid Urine pH 8.0 Urine Specific [place] 1.020 Urine Protein 30 mg/dL (NEG-TRACE) Urine Glucose (UA) Negative mg/dL (NEG) Urine Ketones (Stick) 40 mg/dL (NEG) Urine Blood Moderate (NEG) Urine Nitrite Negative (NEG) Urine Bilirubin Small (NEG) Urine Urobilinogen Dipstick 0.2 mg/dL (0.2 mg/dL) Urine Leukocyte Esterase Small (NEG) Urine RBC Rare /HPF (0-2) Urine WBC 1-4 /HPF (0-4) Urine Squamous Epithelial Cells Mod /LPF Urine Bacteria Moderate /HPF (0-FEW) Bedside Urine HCG, Qualitative Hcg negative (Negative) White Blood Count 13.1 x10^3/uL (4.0-11.0) 11.3 x10^3/uL (4.0-11.0) Red Blood Count 4.43 x10^6/uL (3.50-5.40) 3.89 x10^6/uL (3.50-5.40) Hemoglobin 13.3 g/dL (12.0-15.5) 11.6 g/dL (12.0-15.5) Hematocrit 38.2 % (36.0-47.0) 33.5 % (36.0-47.0) Mean Corpuscular Volume 86 fL (79-100) 86 fL (79-100) Mean Corpuscular Hemoglobin 30 pg (25-35) 30 pg (25-35) Mean Corpuscular Hemoglobin Concent 35 g/dL (31-37) 35 g/dL (31-37) Red Cell Distribution Width 13.6 % (11.5-14.5) 13.3 % (11.5-14.5) Platelet Count 394 x10^3/uL (140-400) 343 x10^3/uL (140-400) Neutrophils (%) (Auto) 70 % (31-73) 56 % (31-73) Lymphocytes (%) (Auto) 20 % (24-48) 29 % (24-48) Monocytes (%) (Auto) 10 % (0-9) 13 % (0-9) Eosinophils (%) (Auto) 0 % (0-3) 1 % (0-3) Basophils (%) (Auto) 0 % (0-3) 1 % (0-3) Neutrophils # (Auto) 9.1 x10^3uL (1.8-7.7) 6.3 x10^3uL (1.8-7.7) Lymphocytes # (Auto) 2.6 x10^3/uL (1.0-4.8) 3.3 x10^3/uL (1.0-4.8) Monocytes # (Auto) 1.3 x10^3/uL (0.0-1.1) 1.5 x10^3/uL (0.0-1.1) Eosinophils # (Auto) 0.1 x10^3/uL (0.0-0.7) 0.2 x10^3/uL (0.0-0.7) Basophils # (Auto) 0.1 x10^3/uL (0.0-0.2) 0.1 x10^3/uL (0.0-0.2) Sodium Level 141 mmol/L (136-145) 138 mmol/L (136-145) Potassium Level 3.2 mmol/L (3.5-5.1) 3.4 mmol/L (3.5-5.1) Chloride Level 102 mmol/L (98-107) 105 mmol/L (98-107) Carbon Dioxide Level 30 mmol/L (21-32) 25 mmol/L (21-32) Anion Gap 9 (6-14) 8 (6-14) Blood Urea Nitrogen 8 mg/dL (7-20) 5 mg/dL (7-20) Creatinine 0.8 mg/dL (0.6-1.0) 0.7 mg/dL (0.6-1.0) Estimated GFR (Cockcroft-Gault) 81.6 95.2 BUN/Creatinine Ratio 10 (6-20) Glucose Level 82 mg/dL (70-99) 93 mg/dL (70-99) Calcium Level 9.0 mg/dL (8.5-10.1) 8.4 mg/dL (8.5-10.1) Total Bilirubin 0.4 mg/dL (0.2-1.0) Aspartate Amino Transf (AST/SGOT) 12 U/L (15-37) Alanine Aminotransferase (ALT/SGPT) 17 U/L (14-59) Alkaline Phosphatase 88 U/L (46-116) Total Protein 7.6 g/dL (6.4-8.2) Albumin 2.7 g/dL (3.4-5.0) Albumin/Globulin Ratio 0.6 (1.0-1.7) Lipase 43 U/L (73-393) Thyroid Stimulating Hormone (TSH) 0.083 uIU/mL (0.358-3.74) Free Thyroxine 1.19 ng/dL (0.76-1.46) Allergies: Coded Allergies: ciprofloxacin (Verified Allergy, Mild, ITCHING, 03/24/18) Medications: Current Medications Medications (Trade) Dose Ordered Sig/Dean Route PRN Reason Start Time Stop Time Status Last Admin Dose Admin Ondansetron HCl (Zofran) 4 mg 1X ONCE IV 03/24/18 13:45 03/24/18 13:46 DC 03/24/18 14:26 Fentanyl Citrate (Fentanyl 2ml Vial) 50 mcg 1X ONCE IV 03/24/18 13:45 03/24/18 13:46 DC 03/24/18 14:26 Sodium Chloride 1,000 ml @ 1,000 mls/hr 1X ONCE IV 03/24/18 13:45 03/24/18 14:44 DC 03/24/18 14:24 Sodium Chloride 1,000 ml @ 100 mls/hr Q10H IV 03/24/18 16:17 03/25/18 05:41 Acetaminophen/ Hydrocodone Bitart (Lortab 5/325) 1 tab PRN Q4HRS PRN PO MILD PAIN 03/24/18 16:30 03/25/18 08:51 Ciprofloxacin/ Dextrose 200 ml @ 200 mls/hr 1X ONCE IV 03/24/18 16:45 03/24/18 20:09 DC 03/24/18 17:41 Potassium Chloride/Dextrose/ Sod Cl 1,000 ml @ 75 mls/hr 1X ONCE IV 03/24/18 17:00 03/25/18 06:19 DC 03/24/18 17:39 Piperacillin Sod/ Tazobactam Sod 3.375 gm/Sodium Chloride 50 ml @ 100 mls/hr Q6HRS IV 03/25/18 00:00 03/25/18 05:39 Imaging: Imaging: CT A/P 03/24/18 IMPRESSION: 1. Acute colitis of infectious or inflammatory etiologies from the proximal transverse colon to the rectosigmoid junction. There is no clear involvement of the terminal ileum. There are prominent associated pericolonic lymph nodes. 2. Bilateral renal cortical lobulation likely due to scarring. There is a 1 mm nonobstructing stone within the right kidney. 3. Stable 2.8 cm hypodense lesion within the right hepatic lobe along the falciform ligament. The nearly 5 year course of stability favors benign geographic fatty infiltration. This can likely be confirmed with a hepatic sonogram. PE: GEN: NAD HEENT: Atraumatic, PERRL LUNGS: CTAB HEART: RRR ABD: BS+ (somewhat quiet), soft, pinpoint LLQ discomfort EXTREMITY: No edema SKIN: No rashes, no jaundice NEURO/PSYCH: A & O 3 A/P: A/P: Fever, LLQ pain, diarrhea, weight loss - better, recently on prednisone and antibiotics Leukocytosis - better Anemia - Hgb 11.[address] - colitis from proximal transverse to rectosigmoid junction w/ associated pericolonic lymph nodes Crohn's disease - diagnosed in 2008, last colonoscopy w/ ileitis and colitis, on Humira, colonoscopy scheduled for yesterday +tobacco -- Reviewed w/ Dr. Jeffries - colonoscopy this afternoon, hold on antibiotics for now, await stool tests. Pain control per primary. Stop smoking. JANELL KAHN Mar 25, 2018 09:15
[2018-03-25] MEDS ORDERED: fentaNYL PF VIAL 100 MCG/2 ML VIAL IV PRN ×3 (09:30→14:45)
[2018-03-25] MEDS ORDERED: ACETAMINOPHEN 500 MG TABLET PO PRN (09:30)
[2018-03-25] MEDS ORDERED: ACETAMINOPHEN/CODEINE 300/30MG TABLET. PO PRN (09:30)
--- NOTE | 2018-03-25 09:55 | PDOC ---
PROGRESS NOTES Chief Complaint Chief Complaint Nausea, Vomiting Diarrhea Secondary to Acute Crohn's Flare Hypokalemia Leukocytosis secondary to Colitis/recent steroid use Tachycardia secondary to volume depletion. History of Present Illness History of Present Illness MOstly left lower quadrant pain No fevers overnight - on IV abx flagyl etc Was planned for colonoscopy but had fevers hence sent by colonoscopy suite yesterday Plan for colonoscopy later 4 or 4:30 PM by GI No sedimentation rate WBC 11 Potassium still low 3.4 but much better than on admission She did have biologics- Humira in the past Has had Crohn's since 2008 Plan: Incorporate KCl into current IVF Check sedimentation rate Labs tomorrow She takes Effexor not Prozac and I have fixed that on home meds Colonoscopy later Vitals Vitals Vital Signs Date Time Temp Pulse Resp B/P (MAP) Pulse Ox O2 Delivery O2 Flow Rate FiO2 03/25/18 08:51 20 97 Room Air 03/25/18 07:00 98.0 80 90/48 (62) 98.0 Physical Exam General: Alert, Oriented X3, Cooperative, No acute distress Heart: Regular rate, Normal S1, Normal S2 Lungs: Clear Abdomen: Soft, Other (normo active bowel sounds with tenderness mostly in the left upper quadrant area but no guarding) Extremities: No clubbing, No cyanosis, No edema Skin: No rashes, No breakdown, No significant lesion Labs LABS Laboratory Tests Test 03/24/18 12:51 03/24/18 14:01 03/24/18 14:15 03/25/18 03:50 Urine Collection Type Unknown Urine Color [place] Urine Clarity Turbid Urine pH 8.0 Urine Specific [place] 1.020 Urine Protein 30 mg/dL (NEG-TRACE) Urine Glucose (UA) Negative mg/dL (NEG) Urine Ketones (Stick) 40 mg/dL (NEG) Urine Blood Moderate (NEG) Urine Nitrite Negative (NEG) Urine Bilirubin Small (NEG) Urine Urobilinogen Dipstick 0.2 mg/dL (0.2 mg/dL) Urine Leukocyte Esterase Small (NEG) Urine RBC Rare /HPF (0-2) Urine WBC 1-4 /HPF (0-4) Urine Squamous Epithelial Cells Mod /LPF Urine Bacteria Moderate /HPF (0-FEW) Bedside Urine HCG, Qualitative Hcg negative (Negative) White Blood Count 13.1 x10^3/uL (4.0-11.0) 11.3 x10^3/uL (4.0-11.0) Red Blood Count 4.43 x10^6/uL (3.50-5.40) 3.89 x10^6/uL (3.50-5.40) Hemoglobin 13.3 g/dL (12.0-15.5) 11.6 g/dL (12.0-15.5) Hematocrit 38.2 % (36.0-47.0) 33.5 % (36.0-47.0) Mean Corpuscular Volume 86 fL (79-100) 86 fL (79-100) Mean Corpuscular Hemoglobin 30 pg (25-35) 30 pg (25-35) Mean Corpuscular Hemoglobin Concent 35 g/dL (31-37) 35 g/dL (31-37) Red Cell Distribution Width 13.6 % (11.5-14.5) 13.3 % (11.5-14.5) Platelet Count 394 x10^3/uL (140-400) 343 x10^3/uL (140-400) Neutrophils (%) (Auto) 70 % (31-73) 56 % (31-73) Lymphocytes (%) (Auto) 20 % (24-48) 29 % (24-48) Monocytes (%) (Auto) 10 % (0-9) 13 % (0-9) Eosinophils (%) (Auto) 0 % (0-3) 1 % (0-3) Basophils (%) (Auto) 0 % (0-3) 1 % (0-3) Neutrophils # (Auto) 9.1 x10^3uL (1.8-7.7) 6.3 x10^3uL (1.8-7.7) Lymphocytes # (Auto) 2.6 x10^3/uL (1.0-4.8) 3.3 x10^3/uL (1.0-4.8) Monocytes # (Auto) 1.3 x10^3/uL (0.0-1.1) 1.5 x10^3/uL (0.0-1.1) Eosinophils # (Auto) 0.1 x10^3/uL (0.0-0.7) 0.2 x10^3/uL (0.0-0.7) Basophils # (Auto) 0.1 x10^3/uL (0.0-0.2) 0.1 x10^3/uL (0.0-0.2) Sodium Level 141 mmol/L (136-145) 138 mmol/L (136-145) Potassium Level 3.2 mmol/L (3.5-5.1) 3.4 mmol/L (3.5-5.1) Chloride Level 102 mmol/L (98-107) 105 mmol/L (98-107) Carbon Dioxide Level 30 mmol/L (21-32) 25 mmol/L (21-32) Anion Gap 9 (6-14) 8 (6-14) Blood Urea Nitrogen 8 mg/dL (7-20) 5 mg/dL (7-20) Creatinine 0.8 mg/dL (0.6-1.0) 0.7 mg/dL (0.6-1.0) Estimated GFR (Cockcroft-Gault) 81.6 95.2 BUN/Creatinine Ratio 10 (6-20) Glucose Level 82 mg/dL (70-99) 93 mg/dL (70-99) Calcium Level 9.0 mg/dL (8.5-10.1) 8.4 mg/dL (8.5-10.1) Total Bilirubin 0.4 mg/dL (0.2-1.0) Aspartate Amino Transf (AST/SGOT) 12 U/L (15-37) Alanine Aminotransferase (ALT/SGPT) 17 U/L (14-59) Alkaline Phosphatase 88 U/L (46-116) Total Protein 7.6 g/dL (6.4-8.2) Albumin 2.7 g/dL (3.4-5.0) Albumin/Globulin Ratio 0.6 (1.0-1.7) Lipase 43 U/L (73-393) Thyroid Stimulating Hormone (TSH) 0.083 uIU/mL (0.358-3.74) Free Thyroxine 1.19 ng/dL (0.76-1.46) Assessment and Plan Assessmemt and Plan Problems Medical Problems: (1) Acute colitis Status: Acute Comment Review of Relevant I have reviewed the following items brenton (where applicable) has been applied. Labs Laboratory Tests Test 03/24/18 12:51 03/24/18 14:01 03/24/18 14:15 03/25/18 03:50 Urine Collection Type Unknown Urine Color [place] Urine Clarity Turbid Urine pH 8.0 Urine Specific [place] 1.020 Urine Protein 30 mg/dL (NEG-TRACE) Urine Glucose (UA) Negative mg/dL (NEG) Urine Ketones (Stick) 40 mg/dL (NEG) Urine Blood Moderate (NEG) Urine Nitrite Negative (NEG) Urine Bilirubin Small (NEG) Urine Urobilinogen Dipstick 0.2 mg/dL (0.2 mg/dL) Urine Leukocyte Esterase Small (NEG) Urine RBC Rare /HPF (0-2) Urine WBC 1-4 /HPF (0-4) Urine Squamous Epithelial Cells Mod /LPF Urine Bacteria Moderate /HPF (0-FEW) Bedside Urine HCG, Qualitative Hcg negative (Negative) White Blood Count 13.1 x10^3/uL (4.0-11.0) 11.3 x10^3/uL (4.0-11.0) Red Blood Count 4.43 x10^6/uL (3.50-5.40) 3.89 x10^6/uL (3.50-5.40) Hemoglobin 13.3 g/dL (12.0-15.5) 11.6 g/dL (12.0-15.5) Hematocrit 38.2 % (36.0-47.0) 33.5 % (36.0-47.0) Mean Corpuscular Volume 86 fL (79-100) 86 fL (79-100) Mean Corpuscular Hemoglobin 30 pg (25-35) 30 pg (25-35) Mean Corpuscular Hemoglobin Concent 35 g/dL (31-37) 35 g/dL (31-37) Red Cell Distribution Width 13.6 % (11.5-14.5) 13.3 % (11.5-14.5) Platelet Count 394 x10^3/uL (140-400) 343 x10^3/uL (140-400) Neutrophils (%) (Auto) 70 % (31-73) 56 % (31-73) Lymphocytes (%) (Auto) 20 % (24-48) 29 % (24-48) Monocytes (%) (Auto) 10 % (0-9) 13 % (0-9) Eosinophils (%) (Auto) 0 % (0-3) 1 % (0-3) Basophils (%) (Auto) 0 % (0-3) 1 % (0-3) Neutrophils # (Auto) 9.1 x10^3uL (1.8-7.7) 6.3 x10^3uL (1.8-7.7) Lymphocytes # (Auto) 2.6 x10^3/uL (1.0-4.8) 3.3 x10^3/uL (1.0-4.8) Monocytes # (Auto) 1.3 x10^3/uL (0.0-1.1) 1.5 x10^3/uL (0.0-1.1) Eosinophils # (Auto) 0.1 x10^3/uL (0.0-0.7) 0.2 x10^3/uL (0.0-0.7) Basophils # (Auto) 0.1 x10^3/uL (0.0-0.2) 0.1 x10^3/uL (0.0-0.2) Sodium Level 141 mmol/L (136-145) 138 mmol/L (136-145) Potassium Level 3.2 mmol/L (3.5-5.1) 3.4 mmol/L (3.5-5.1) Chloride Level 102 mmol/L (98-107) 105 mmol/L (98-107) Carbon Dioxide Level 30 mmol/L (21-32) 25 mmol/L (21-32) Anion Gap 9 (6-14) 8 (6-14) Blood Urea Nitrogen 8 mg/dL (7-20) 5 mg/dL (7-20) Creatinine 0.8 mg/dL (0.6-1.0) 0.7 mg/dL (0.6-1.0) Estimated GFR (Cockcroft-Gault) 81.6 95.2 BUN/Creatinine Ratio 10 (6-20) Glucose Level 82 mg/dL (70-99) 93 mg/dL (70-99) Calcium Level 9.0 mg/dL (8.5-10.1) 8.4 mg/dL (8.5-10.1) Total Bilirubin 0.4 mg/dL (0.2-1.0) Aspartate Amino Transf (AST/SGOT) 12 U/L (15-37) Alanine Aminotransferase (ALT/SGPT) 17 U/L (14-59) Alkaline Phosphatase 88 U/L (46-116) Total Protein 7.6 g/dL (6.4-8.2) Albumin 2.7 g/dL (3.4-5.0) Albumin/Globulin Ratio 0.6 (1.0-1.7) Lipase 43 U/L (73-393) Thyroid Stimulating Hormone (TSH) 0.083 uIU/mL (0.358-3.74) Free Thyroxine 1.19 ng/dL (0.76-1.46) Laboratory Tests Test 03/24/18 12:51 03/24/18 14:01 03/24/18 14:15 03/25/18 03:50 Urine Collection Type Unknown Urine Color [place] Urine Clarity Turbid Urine pH 8.0 Urine Specific [place] 1.020 Urine Protein 30 mg/dL (NEG-TRACE) Urine Glucose (UA) Negative mg/dL (NEG) Urine Ketones (Stick) 40 mg/dL (NEG) Urine Blood Moderate (NEG) Urine Nitrite Negative (NEG) Urine Bilirubin Small (NEG) Urine Urobilinogen Dipstick 0.2 mg/dL (0.2 mg/dL) Urine Leukocyte Esterase Small (NEG) Urine RBC Rare /HPF (0-2) Urine WBC 1-4 /HPF (0-4) Urine Squamous Epithelial Cells Mod /LPF Urine Bacteria Moderate /HPF (0-FEW) Bedside Urine HCG, Qualitative Hcg negative (Negative) White Blood Count 13.1 x10^3/uL (4.0-11.0) 11.3 x10^3/uL (4.0-11.0) Red Blood Count 4.43 x10^6/uL (3.50-5.40) 3.89 x10^6/uL (3.50-5.40) Hemoglobin 13.3 g/dL (12.0-15.5) 11.6 g/dL (12.0-15.5) Hematocrit 38.2 % (36.0-47.0) 33.5 % (36.0-47.0) Mean Corpuscular Volume 86 fL (79-100) 86 fL (79-100) Mean Corpuscular Hemoglobin 30 pg (25-35) 30 pg (25-35) Mean Corpuscular Hemoglobin Concent 35 g/dL (31-37) 35 g/dL (31-37) Red Cell Distribution Width 13.6 % (11.5-14.5) 13.3 % (11.5-14.5) Platelet Count 394 x10^3/uL (140-400) 343 x10^3/uL (140-400) Neutrophils (%) (Auto) 70 % (31-73) 56 % (31-73) Lymphocytes (%) (Auto) 20 % (24-48) 29 % (24-48) Monocytes (%) (Auto) 10 % (0-9) 13 % (0-9) Eosinophils (%) (Auto) 0 % (0-3) 1 % (0-3) Basophils (%) (Auto) 0 % (0-3) 1 % (0-3) Neutrophils # (Auto) 9.1 x10^3uL (1.8-7.7) 6.3 x10^3uL (1.8-7.7) Lymphocytes # (Auto) 2.6 x10^3/uL (1.0-4.8) 3.3 x10^3/uL (1.0-4.8) Monocytes # (Auto) 1.3 x10^3/uL (0.0-1.1) 1.5 x10^3/uL (0.0-1.1) Eosinophils # (Auto) 0.1 x10^3/uL (0.0-0.7) 0.2 x10^3/uL (0.0-0.7) Basophils # (Auto) 0.1 x10^3/uL (0.0-0.2) 0.1 x10^3/uL (0.0-0.2) Sodium Level 141 mmol/L (136-145) 138 mmol/L (136-145) Potassium Level 3.2 mmol/L (3.5-5.1) 3.4 mmol/L (3.5-5.1) Chloride Level 102 mmol/L (98-107) 105 mmol/L (98-107) Carbon Dioxide Level 30 mmol/L (21-32) 25 mmol/L (21-32) Anion Gap 9 (6-14) 8 (6-14) Blood Urea Nitrogen 8 mg/dL (7-20) 5 mg/dL (7-20) Creatinine 0.8 mg/dL (0.6-1.0) 0.7 mg/dL (0.6-1.0) Estimated GFR (Cockcroft-Gault) 81.6 95.2 BUN/Creatinine Ratio 10 (6-20) Glucose Level 82 mg/dL (70-99) 93 mg/dL (70-99) Calcium Level 9.0 mg/dL (8.5-10.1) 8.4 mg/dL (8.5-10.1) Total Bilirubin 0.4 mg/dL (0.2-1.0) Aspartate Amino Transf (AST/SGOT) 12 U/L (15-37) Alanine Aminotransferase (ALT/SGPT) 17 U/L (14-59) Alkaline Phosphatase 88 U/L (46-116) Total Protein 7.6 g/dL (6.4-8.2) Albumin 2.7 g/dL (3.4-5.0) Albumin/Globulin Ratio 0.6 (1.0-1.7) Lipase 43 U/L (73-393) Thyroid Stimulating Hormone (TSH) 0.083 uIU/mL (0.358-3.74) Free Thyroxine 1.19 ng/dL (0.76-1.46) Medications Current Medications Ondansetron HCl (Zofran) 4 mg 1X ONCE IV Last administered on 03/24/18at 14:26; Start 03/24/18 at 13:45; Stop 03/24/18 at 13:46; Status DC Fentanyl Citrate (Fentanyl 2ml Vial) 50 mcg 1X ONCE IV Last administered on 03/24/18at 14:26; Start 03/24/18 at 13:45; Stop 03/24/18 at 13:46; Status DC Sodium Chloride 1,000 ml @ 1,000 mls/hr 1X ONCE IV Last administered on at 14:24; Start 03/24/18 at 13:45; Stop 03/24/18 at 14:44; Status DC Iohexol (Omnipaque 300 Mg/ml) 75 ml 1X ONCE IV ; Start 03/24/18 at 15:15; Stop 03/24/18 at 15:16; Status DC Info (CONTRAST GIVEN -- Rx MONITORING) 1 each PRN DAILY PRN MC SEE COMMENTS; Start 03/24/18 at 15:30; Stop 03/26/18 at 15:29 Sodium Chloride 1,000 ml @ 100 mls/hr Q10H IV Last administered on 03/25/18at 05:41; Start 03/24/18 at 16:17; Stop 03/25/18 at 09:23; Status DC Ondansetron HCl (Zofran) 4 mg PRN Q6HRS PRN IV NAUSEA/VOMITING, 1ST CHOICE; Start 03/24/18 at 16:30 Prochlorperazine Edisylate (Compazine) 10 mg PRN Q6HRS PRN IV NAUSEA/VOMITING, 2ND CHOICE; Start 03/24/18 at 16:30 Al Hydroxide/Mg Hydroxide (Mylanta Plus Xs) 30 ml PRN Q3HRS PRN PO HEARTBURN / GAS; Start 03/24/18 at 16:30 Zolpidem Tartrate (Ambien) 5 mg PRN QHS PRN PO INSOMNIA, MAY REPEAT IN 1HR; Start 03/24/18 at 16:30 Info (Non-Icu Electrolyte Protocol) 1 ea PRN DAILY PRN MC SEE COMMENTS; Start 03/24/18 at 16:30 Acetaminophen/ Hydrocodone Bitart (Lortab 5/325) 1 tab PRN Q4HRS PRN PO MILD PAIN Last administered on 03/25/18at 08:51; Start 03/24/18 at 16:30 Acetaminophen/ Hydrocodone Bitart (Lortab 5/325) 1 tab PRN Q4HRS PRN PO MILD PAIN, 2ND CHOICE; Start 03/24/18 at 16:30; Status Cancel Magnesium Hydroxide (Milk Of Magnesia) 2,400 mg PRN Q12HR PRN PO CONSTIPATION; Start 03/24/18 at 16:30 Heparin Sodium (Porcine) (Heparin Sodium) 5,000 unit Q8HRS SQ ; Start 03/24/18 at 22:00 Fluoxetine HCl (PROzac) 20 mg DAILY PO ; Start 03/25/18 at 09:00 Metronidazole 100 ml @ 100 mls/hr Q8HRS IV ; Start 03/24/18 at 22:00; Stop at 22:00; Status DC Ciprofloxacin/ Dextrose 200 ml @ 200 mls/hr BID IV ; Start 03/25/18 at 09:00; Stop 03/25/18 at 09:00; Status DC Ciprofloxacin/ Dextrose 200 ml @ 200 mls/hr 1X ONCE IV Last administered on at 17:41; Start 03/24/18 at 16:45; Stop 03/24/18 at 20:09; Status DC Metronidazole 100 ml @ 100 mls/hr 1X ONCE IV ; Start 03/24/18 at 16:45; Stop at 17:44; Status DC Potassium Chloride/Dextrose/ Sod Cl 1,000 ml @ 75 mls/hr 1X ONCE IV Last administered on 03/24/18at 17:39; Start 03/24/18 at 17:00; Stop 03/25/18 at 06:19; Status DC Ciprofloxacin/ Dextrose 200 ml @ 200 mls/hr 1X ONCE IV ; Start 03/24/18 at 17: 15; Stop 03/24/18 at 18:14; Status UNV Metronidazole 100 ml @ 100 mls/hr 1X ONCE IV ; Start 03/24/18 at 17:15; Stop at 18:14; Status UNV Piperacillin Sod/ Tazobactam Sod 3.375 gm/Sodium Chloride 50 ml @ 100 mls/hr Q6HRS IV Last administered on 03/25/18at 05:39; Start 03/25/18 at 00:00; Stop at 09:15; Status DC Potassium Chloride/Dextrose/ Sod Cl 1,000 ml @ 100 mls/hr Q10H IV ; Start 03/25 at 10:00 Acetaminophen (Tylenol) 500 mg PRN Q6HRS PRN PO MILD PAIN / TEMP; Start at 09:30 Acetaminophen/ Codeine Phosphate (Tylenol #3) 1 tab PRN Q6HRS PRN PO MODERATE PAIN; Start 03/25/18 at 09:30 Fentanyl Citrate (Fentanyl 2ml Vial) 50 mcg PRN Q2HR PRN IV PAIN; Start at 09:30 Active Scripts Active Reported Humira Crohn's (Adalimumab) 40 Mg/0.8 Ml Pen.ij.kit 40 Mg SQ Q2WKS Effexor Xr (Venlafaxine Hcl) 150 Mg Cap.er.24h 1 Cap PO DAILY Depo-Provera (Medroxyprogesterone Acetate) 150 Mg/1 Ml Disp.syrin 150 Mg IM Prednisone 20 Mg Tablet 20 Mg PO Vitals/I & O Vital Sign - Last 24 Hours 03/24/18 03/24/18 03/24/18 03/24/18 13:04 13:59 14:29 14:59 Temp 98.6 99.2 98.6 99.2 Pulse 104 108 106 102 Resp 16 16 16 16 B/P (MAP) 113/80 (91) 107/74 (85) 113/64 (80) 111/65 (80) Pulse Ox 96 98 99 96 O2 Delivery Room Air Room Air Room Air Room Air 03/24/18 03/24/18 03/24/18 03/24/18 15:59 16:29 17:29 17:57 Pulse 100 96 96 Resp 16 15 16 16 B/P (MAP) 119/69 (86) 124/85 (98) 118/69 (85) Pulse Ox 99 99 99 O2 Delivery Room Air Room Air Room Air Room Air 03/24/18 03/24/18 03/24/18 03/25/18 18:57 20:00 22:59 03:00 Temp 98.6 98.4 98.6 98.4 Pulse 85 73 Resp 18 18 B/P (MAP) 102/55 (71) 97/63 (74) Pulse Ox 99 96 94 O2 Delivery Room Air Room Air Room Air 03/25/18 03/25/18 07:00 08:51 Temp 98.0 98.0 Pulse 80 Resp 18 20 B/P (MAP) 90/48 (62) Pulse Ox 97 97 O2 Delivery Room Air Room Air Intake and Output 03/24/18 03/24/18 03/25/18 15:01 23:01 07:01 Intake Total 1000 ml 50 ml Output Total 1 ml Balance 999 ml 50 ml TAMARA ALBERT MD Mar 25, 2018 09:55
[2018-03-25] MEDS: VENLAFAXINE 50 MG TABLET. PO SCH (10:47)
[2018-03-25] MEDS: POTASSIUM CL 40MEQ D5-0.45NACL 1,000 ML IV SCH ×2 (10:48→20:43)
[2018-03-25 11:00] VITALS: BP 122/78
[2018-03-25] MEDS ORDERED: PROPOFOL 20 ML IV ONE ×2 (14:40→14:45)
[2018-03-25] MEDS: IV RINGERS,LACTATED 1000ML 1,000 ML IV SCH ×2 (14:43→20:11)
[2018-03-25] MEDS ORDERED: MIDAZOLAM HCL/PF 2 MG/2 ML VIAL. IV PRN (14:45)
[2018-03-25] MEDS ORDERED: LIDOCAINE 1% PF 2 ML VIAL. ID PRN (14:45)
--- NOTE | 2018-03-25 15:28 | PDOC4 ---
PROCEDURE Procedure Colonoscopy Indication: abd pain, Crohn's disease--activity? Meds: per anesthesia Findings: NASH normal 'Scope advanced to TI. Generally poor prep, particularly in right colon. Scattered apthae seen throughout. TI grossly normal. From mid-transverse to descending/sigmoid junction, severe edema/cobblestoning with frequent short longitudinal ulcerations c/w active Crohn's. Did obtain stool sample to r/o C.diff. Internal hemorrhoids on retroflex. Tolerated well. IMP: Active Crohn's Internal hemorrhoids. Doubt C.diff, but stool sample sent. REC: Stop antibiotics. IV steroids. Await stool results. As able, may eat. Start with clears. Thanks. GLORY RIVERA MD Mar 25, 2018 15:28
[2018-03-25] MEDS: methylPREDNISolone SOD SUCC PF 40 MG/ML VIAL. IV SCH ×2 (16:58→22:54)
[2018-03-25 19:00] VITALS: BP 106/63
[2018-03-25 23:04] VITALS: BP 100/62
[2018-03-26 03:05] VITALS: BP 98/63
[2018-03-26] MEDS: POTASSIUM CL 40MEQ D5-0.45NACL 1,000 ML IV SCH (05:52)
[2018-03-26 07:00] VITALS: BP 104/63
[2018-03-26 07:10] LABS: BASO % 0 % (0-3); EOS % 0 % (0-3); HEMATOCRIT 35.2 % (36.0-47.0); HEMOGLOBIN 12.1 g/dL (12.0-15.5); LYMPH % 14 % (24-48); MEAN CORPUSCULAR HEMOGLOBIN 30 pg (25-35); MEAN CORPUSCULAR HGB CONC 34 g/dL (31-37); MEAN CORPUSCULAR VOLUME 86 fL (79-100); MONO # 0.2 x10^3/uL (0.0-1.1); MONO % 2 % (0-9); NEUT # 6.4 x10^3uL (1.8-7.7); NEUT % 84 % (31-73); PLATELET COUNT 363 x10^3/uL (140-400); RED BLOOD COUNT 4.08 x10^6/uL (3.50-5.40); RED CELL DISTRIBUTION WIDTH 13.2 % (11.5-14.5); WHITE BLOOD COUNT 7.7 x10^3/uL (4.0-11.0)
[2018-03-26] MEDS: methylPREDNISolone SOD SUCC PF 40 MG/ML VIAL. IV SCH (08:51)
[2018-03-26] MEDS: VENLAFAXINE 50 MG TABLET. PO SCH (08:52)
[2018-03-26] MEDS: HYDROcodone/APAP 5/325MG 1 TAB TABLET PO PRN (08:55)
[2018-03-26 11:00] VITALS: BP 94/62
[2018-03-26] MEDS ORDERED: HYDR-2761 PO (11:18)
--- NOTE | 2018-03-26 11:20 | PDOC3 ---
Discharge Summary Visit Information Date of Admission: Mar 24, 2018 Date of Discharge: Mar 26, 2018 Admitting Diagnosis Comment: Crohn's flare with hypokalemia ESR 71 Negative blood cultures Final Diagnosis Problems Medical Problems: (1) Acute colitis Status: Acute Brief Hospital Course Allergies Allergies Coded Allergies Type Severity Reaction Last Updated Verified ciprofloxacin Allergy Mild ITCHING 03/25/18 Yes Vital Signs Vital Signs Date Time Temp Pulse Resp B/P (MAP) Pulse Ox O2 Delivery O2 Flow Rate FiO2 03/26/18 08:55 20 96 Room Air 03/26/18 07:00 98.0 64 104/63 (77) 98.0 03/25/18 21:42 2.0 Lab Results Laboratory Tests Test 03/24/18 12:51 03/24/18 14:01 03/24/18 14:15 03/25/18 03:50 Urine Collection Type Unknown Urine Color Raven Urine Clarity Turbid Urine pH 8.0 Urine Specific Parsons 1.020 Urine Protein 30 mg/dL (NEG-TRACE) Urine Glucose (UA) Negative mg/dL (NEG) Urine Ketones (Stick) 40 mg/dL (NEG) Urine Blood Moderate (NEG) Urine Nitrite Negative (NEG) Urine Bilirubin Small (NEG) Urine Urobilinogen Dipstick 0.2 mg/dL (0.2 mg/dL) Urine Leukocyte Esterase Small (NEG) Urine RBC Rare /HPF (0-2) Urine WBC 1-4 /HPF (0-4) Urine Squamous Epithelial Cells Mod /LPF Urine Bacteria Moderate /HPF (0-FEW) Bedside Urine HCG, Qualitative Hcg negative (Negative) White Blood Count 13.1 x10^3/uL (4.0-11.0) 11.3 x10^3/uL (4.0-11.0) Red Blood Count 4.43 x10^6/uL (3.50-5.40) 3.89 x10^6/uL (3.50-5.40) Hemoglobin 13.3 g/dL (12.0-15.5) 11.6 g/dL (12.0-15.5) Hematocrit 38.2 % (36.0-47.0) 33.5 % (36.0-47.0) Mean Corpuscular Volume 86 fL (79-100) 86 fL (79-100) Mean Corpuscular Hemoglobin 30 pg (25-35) 30 pg (25-35) Mean Corpuscular Hemoglobin Concent 35 g/dL (31-37) 35 g/dL (31-37) Red Cell Distribution Width 13.6 % (11.5-14.5) 13.3 % (11.5-14.5) Platelet Count 394 x10^3/uL (140-400) 343 x10^3/uL (140-400) Neutrophils (%) (Auto) 70 % (31-73) 56 % (31-73) Lymphocytes (%) (Auto) 20 % (24-48) 29 % (24-48) Monocytes (%) (Auto) 10 % (0-9) 13 % (0-9) Eosinophils (%) (Auto) 0 % (0-3) 1 % (0-3) Basophils (%) (Auto) 0 % (0-3) 1 % (0-3) Neutrophils # (Auto) 9.1 x10^3uL (1.8-7.7) 6.3 x10^3uL (1.8-7.7) Lymphocytes # (Auto) 2.6 x10^3/uL (1.0-4.8) 3.3 x10^3/uL (1.0-4.8) Monocytes # (Auto) 1.3 x10^3/uL (0.0-1.1) 1.5 x10^3/uL (0.0-1.1) Eosinophils # (Auto) 0.1 x10^3/uL (0.0-0.7) 0.2 x10^3/uL (0.0-0.7) Basophils # (Auto) 0.1 x10^3/uL (0.0-0.2) 0.1 x10^3/uL (0.0-0.2) Sodium Level 141 mmol/L (136-145) 138 mmol/L (136-145) Potassium Level 3.2 mmol/L (3.5-5.1) 3.4 mmol/L (3.5-5.1) Chloride Level 102 mmol/L (98-107) 105 mmol/L (98-107) Carbon Dioxide Level 30 mmol/L (21-32) 25 mmol/L (21-32) Anion Gap 9 (6-14) 8 (6-14) Blood Urea Nitrogen 8 mg/dL (7-20) 5 mg/dL (7-20) Creatinine 0.8 mg/dL (0.6-1.0) 0.7 mg/dL (0.6-1.0) Estimated GFR (Cockcroft-Gault) 81.6 95.2 BUN/Creatinine Ratio 10 (6-20) Glucose Level 82 mg/dL (70-99) 93 mg/dL (70-99) Calcium Level 9.0 mg/dL (8.5-10.1) 8.4 mg/dL (8.5-10.1) Total Bilirubin 0.4 mg/dL (0.2-1.0) Aspartate Amino Transf (AST/SGOT) 12 U/L (15-37) Alanine Aminotransferase (ALT/SGPT) 17 U/L (14-59) Alkaline Phosphatase 88 U/L (46-116) Total Protein 7.6 g/dL (6.4-8.2) Albumin 2.7 g/dL (3.4-5.0) Albumin/Globulin Ratio 0.6 (1.0-1.7) Lipase 43 U/L (73-393) Thyroid Stimulating Hormone (TSH) 0.083 uIU/mL (0.358-3.74) Free Thyroxine 1.19 ng/dL (0.76-1.46) Test 03/25/18 09:35 03/26/18 06:34 Erythrocyte Sedimentation Rate 71 (0-25) White Blood Count 7.7 x10^3/uL (4.0-11.0) Red Blood Count 4.08 x10^6/uL (3.50-5.40) Hemoglobin 12.1 g/dL (12.0-15.5) Hematocrit 35.2 % (36.0-47.0) Mean Corpuscular Volume 86 fL (79-100) Mean Corpuscular Hemoglobin 30 pg (25-35) Mean Corpuscular Hemoglobin Concent 34 g/dL (31-37) Red Cell Distribution Width 13.2 % (11.5-14.5) Platelet Count 363 x10^3/uL (140-400) Neutrophils (%) (Auto) 84 % (31-73) Lymphocytes (%) (Auto) 14 % (24-48) Monocytes (%) (Auto) 2 % (0-9) Eosinophils (%) (Auto) 0 % (0-3) Basophils (%) (Auto) 0 % (0-3) Neutrophils # (Auto) 6.4 x10^3uL (1.8-7.7) Lymphocytes # (Auto) 1.0 x10^3/uL (1.0-4.8) Monocytes # (Auto) 0.2 x10^3/uL (0.0-1.1) Eosinophils # (Auto) 0.0 x10^3/uL (0.0-0.7) Basophils # (Auto) 0.0 x10^3/uL (0.0-0.2) Potassium Level 4.4 mmol/L (3.5-5.1) Laboratory Tests Test 03/26/18 06:34 White Blood Count 7.7 x10^3/uL (4.0-11.0) Red Blood Count 4.08 x10^6/uL (3.50-5.40) Hemoglobin 12.1 g/dL (12.0-15.5) Hematocrit 35.2 % (36.0-47.0) Mean Corpuscular Volume 86 fL (79-100) Mean Corpuscular Hemoglobin 30 pg (25-35) Mean Corpuscular Hemoglobin Concent 34 g/dL (31-37) Red Cell Distribution Width 13.2 % (11.5-14.5) Platelet Count 363 x10^3/uL (140-400) Neutrophils (%) (Auto) 84 % (31-73) Lymphocytes (%) (Auto) 14 % (24-48) Monocytes (%) (Auto) 2 % (0-9) Eosinophils (%) (Auto) 0 % (0-3) Basophils (%) (Auto) 0 % (0-3) Neutrophils # (Auto) 6.4 x10^3uL (1.8-7.7) Lymphocytes # (Auto) 1.0 x10^3/uL (1.0-4.8) Monocytes # (Auto) 0.2 x10^3/uL (0.0-1.1) Eosinophils # (Auto) 0.0 x10^3/uL (0.0-0.7) Basophils # (Auto) 0.0 x10^3/uL (0.0-0.2) Potassium Level 4.4 mmol/L (3.5-5.1) Brief Hospital Course 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 History of Biologics in the past but not anymore on any maintenance meds. Admitted for mild bloody diarrhea and abdominal pain- was assessed to have Crohn's flare. Colonoscopy done and showed some inflammation. I'm waiting for GI Rounds to see if discharge on steroids or mesalamine or something similar. Tolerating diet well, pain under control. Rx of Percocet on chart GI consult done Procedures performed: c scope 03/25/18 dc < 30 mins Discharge Information Condition at Discharge: Improved, Stable Follow Up: Weeks (GI as instructed maybe 4 weeks) Disposition/Orders: D/C to Home Scheduled Adalimumab (Humira Crohn's) 40 Mg/0.8 Ml Pen.ij.kit, 40 MG SQ Q2WKS for CROHNS, (Reported) Entered as Reported by: CHAS GRACE on 03/24/182225 Last Action: New Order on 03/24/182225 by CHAS GRACE Venlafaxine Hcl (Effexor Xr) 150 Mg Cap.er.24h, 1 CAP PO DAILY for DEPRESSION, # 30 Ref 1 (Reported) Entered as Reported by: CHAS GRACE on 03/24/182225 Last Action: New Order on 03/24/182225 by CHAS GRACE Scheduled PRN Hydrocodone Bit/Acetaminophen (Hydrocodone-Apap 5-325 ) 1 Tab Tablet, 1 TAB PO PRN Q4HRS PRN for MILD PAIN MDD 1, #20 Prescribed by: TAMARA ALBERT on 03/26/18 1118 Miscellaneous Medications Medroxyprogesterone Acetate (Depo-Provera) 150 Mg/1 Ml Disp.syrin, 150 MG IM, ( Reported) Entered as Reported by: FERNANDO TABARES on 05/13/13 1303 Last Action: HELD on 03/24/181638 by EZ JOAQUIN MD Prednisone (Prednisone) 20 Mg Tablet, 20 MG PO, (Reported) Entered as Reported by: FERNANDO TABARES on 05/13/13 1303 Last Action: HELD on 03/24/181638 by MD BETY PEÑA CHERRIE Y MD Mar 26, 2018 11:20
--- NOTE | 2018-03-26 12:10 | PDOC ---
Subjective: Subjective: She wants to go home. Has only had clears. LLQ pain persists but is tolerable w/ PO pain meds. Still worse before/after stooling, unchanged w/ eating. Has had three small stools since colonoscopy. 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 Wants to know Dr. Jeffries's plan for pain control when she leaves. Wonders about next dose of Humira. Objective: Objective: Asked by primary and several staff members if DC was okay. C Diff, stool culture pending. Vital Signs: Vital Signs Date Time Temp Pulse Resp B/P (MAP) Pulse Ox O2 Delivery O2 Flow Rate FiO2 03/26/18 11:00 97.5 72 18 94/62 (73) 99 Room Air 97.5 03/25/18 21:42 2.0 Labs: Laboratory Tests Test 03/26/18 06:34 White Blood Count 7.7 x10^3/uL Red Blood Count 4.08 x10^6/uL Hemoglobin 12.1 g/dL Hematocrit 35.2 % Mean Corpuscular Volume 86 fL Mean Corpuscular Hemoglobin 30 pg Mean Corpuscular Hemoglobin Concent 34 g/dL Red Cell Distribution Width 13.2 % Platelet Count 363 x10^3/uL Neutrophils (%) (Auto) 84 % Lymphocytes (%) (Auto) 14 % Monocytes (%) (Auto) 2 % Eosinophils (%) (Auto) 0 % Basophils (%) (Auto) 0 % Neutrophils # (Auto) 6.4 x10^3uL Lymphocytes # (Auto) 1.0 x10^3/uL Monocytes # (Auto) 0.2 x10^3/uL Eosinophils # (Auto) 0.0 x10^3/uL Basophils # (Auto) 0.0 x10^3/uL Potassium Level 4.4 mmol/L Imaging: Colonoscopy 03/25/18 NASH normal 'Scope advanced to TI. Generally poor prep, particularly in right colon. Scattered apthae seen throughout. TI grossly normal. From mid-transverse to descending/sigmoid junction, severe edema/cobblestoning with frequent short longitudinal ulcerations c/w active Crohn's. Did obtain stool sample to r/o C.diff. Internal hemorrhoids on retroflex. IMP: Active Crohn's Internal hemorrhoids. Doubt C.diff, but stool sample sent. PE: GEN: NAD LUNGS: CTAB HEART: RRR ABD: pinpoint LLQ tenderness - better NEURO/PSYCH: A & O 3, anxious, tearful, frustrated A/P: Crohn's disease -colonoscopy as above -- Reviewed w/ Dr. Jeffries - if discharges, would send home on prednisone 40mg QD (previously discussed tapering too quickly). Follow-up in the office within 2 weeks - usually sees Breanne or Dr. Tavarez. Follow-up re: stool tests. Pain meds per primary. Stop smoking. D/w Dr. Johnston, then pt had more questions about prednisone dosing, attempting to clarify. JANELL KAHN Mar 26, 2018 12:10
[2018-03-26] MEDS ORDERED: PRED20TA PO (13:17)
--- NOTE | 2018-03-26 14:23 | NUR ---
Discharge teaching provided written and verbal to pt,understanding verbalized. Dismissed to home with all belongings accompanied by her family member. Transported to exit per w/c at 1345.
== END 2018-03-26 13:45 | disposition home or self-care (01) | DRG 386 ==
LOC: ER 12:29 → ED HOLD 17:34 → 5 NORTH 18:25
PROVIDERS: ADMIT Internal Medicine; ATTEND Internal Medicine
PROC: 0DJD8ZZ Inspection of Lower Intestinal Tract, Via Natural or Artificial Opening Endoscopic (ICD-10-PCS; principal; 2018-03-25 16:00)
DX: K50.90 Crohn's disease, unspecified, without complications (principal); K63.3 Ulcer of intestine; E87.6 Hypokalemia; K64.8 Other hemorrhoids; F32.9 Major depressive disorder, single episode, unspecified; F17.210 Nicotine dependence, cigarettes, uncomplicated; E86.9 Volume depletion, unspecified; A04.72 Enterocolitis due to Clostridium difficile, not specified as recurrent
CPT/HCPCS: 36415; 45380; 74177; 80048; 80053; 81001; 81025; 83690; 84132; 84439; 84443; 85025; 85651; 87040; 87045; 87086; 87493; 96361; 96365; 96368; 96375; J0744; J2405; J2543; J2704; J2920; J3010; J7030; J7042; J7120; 99285-25

== ENCOUNTER 2020-04-05 10:54 | Emergency (ER) | payer BC, OTHER ==
[~2020-04-05] VITALS: Ht 157.5 cm; Wt 93.1 kg
[~2020-04-05 10:54] MED LIST changes: +ADAL40PE2 SQ; +HYDR-2761 PO; +VENL150C PO
[2020-04-05 11:06] VITALS: BP 137/80
[2020-04-05] MEDS ORDERED: predniSONE 10 MG TABLET PO ONE (12:00)
[2020-04-05] MEDS ORDERED: KETOROLAC 60 MG/2 ML VIAL. IM ONE (12:00)
[2020-04-05] MEDS ORDERED: METH4TAB2 PO (12:05)
[2020-04-05] MEDS ORDERED: CYCL10TA2 PO (12:05)
[2020-04-05] MEDS ORDERED: HYDR-2759 PO (12:05)
--- NOTE | 2020-04-05 12:05 | PHYS DOC ---
Past Medical History Past Medical History: Depression, Other Additional Past Medical Histor: chrons,OA,DDD,DJD,PINCHED NERVE Past Surgical History: Tonsillectomy, Other Additional Past Surgical Histo: rectal abscess I&D Smoking Status: Current Every Day Smoker Additional Information: 0.5 TO 1 PPD Alcohol Use: Occasionally Drug Use: None General Adult EDM: Chief Complaint: BACK PAIN - NO INJURY HPI: HPI: Patient is a 39 year old female with history of depression presenting to the ED today complaining of moderate burning 10 out of 10 left low back pain dating to the left lower extremity, symptoms have been going on for 1 month. Patient denies any known injury. Denies any loss of bowel/bladder function. States the pain is worse on certain movements as well as certain sitting position. She states she has been taking anti-inflammatories with no relief. She states she has been seen by her PCP, and a chiropractor who did x-rays of her lumbar spine and she was positive for DJD of the lumbar spine. She states she followed up with the PCP again who ordered MRI of her lumbar spine. She states she is unable to get the MRI done as an outpatient and would like the MRI done through the emergency room. Review of Systems: Review of Systems: Constitutional: Denies fever or chills. [] GI: Denies abdominal pain, nausea, vomiting, bloody stools or diarrhea. [] : Denies dysuria. [] Musculoskeletal: Reports left low back pain radiating to the left lower extremity Integument: Denies rash. [] Neurologic: Denies headache, focal weakness or sensory changes. [] Psychiatric: Denies depression or anxiety. [] Heart Score: Risk Factors: Risk Factors: DM, Current or recent (<one month) smoker, HTN, HLP, family history of CAD, obesity. Risk Scores: Score 0 - 3: 2.5% MACE over next 6 weeks - Discharge Home Score 4 - 6: 20.3% MACE over next 6 weeks - Admit for Clinical Observation Score 7 - 10: 72.7% MACE over next 6 weeks - Early Invasive Strategies Current Medications: Current Medications Medications (Trade) Dose Ordered Sig/Dean Start Time Stop Time Status Last Admin Dose Admin Ketorolac Tromethamine (Toradol Im) 60 mg 1X ONCE 04/05/20 12:00 04/05/20 12:01 UNV Allergies: Allergies: Allergies Coded Allergies Type Severity Reaction Last Updated Verified ciprofloxacin Allergy Mild ITCHING 03/25/18 Yes Physical Exam: PE: Constitutional: Well developed, well nourished, no acute distress, non-toxic appearance. [] Abdomen: Bowel sounds normal, soft, no tenderness, no masses, no pulsatile masses. [] Skin: Warm, dry, no erythema, no rash. [] Back: No tenderness, no CVA tenderness. [] Extremities: No tenderness, no cyanosis, no clubbing, ROM intact, no edema. [] Neurologic: Alert and oriented X 3, normal motor function, normal sensory function, no focal deficits noted. [] Psychologic: Affect normal, judgement normal, mood normal. [] Current Patient Data: Vital Signs: Vital Signs Date Time Temp Pulse Resp B/P (MAP) Pulse Ox O2 Delivery O2 Flow Rate FiO2 04/05/20 11:06 98.2 100 17 137/80 (99) 100 Room Air 98.2 EKG: EKG: [] Radiology/Procedures: Radiology/Procedures: [] Course & Med Decision Making: Course & Med Decision Making Pertinent Labs and Imaging studies reviewed. (See chart for details) This is a 39-year-old female patient presented to the ED today with left low back pain radiating to the left lower extremity, symptoms for 1 month, no known injury. Has an MRI ordered as an outpatient but came through the ED requesting we do the MRI today. Has no cauda equina syndrome symptoms. Informed patient she does not meet criteria for emergency MRI. Discharged to home. Follow-up with PCP for outpatient MRI. Mily Disclaimer: Mily Disclaimer: This electronic medical record was generated, in whole or in part, using a voice recognition dictation system. Departure Departure Impression: Primary Impression: Low back pain Qualified Codes: M54.42 - Lumbago with sciatica, left side Additional Impression: Sciatica of left side Disposition: 01 DC HOME SELF CARE/HOMELESS Condition: STABLE Referrals: UNKNOWN PCP NAME (PCP) follow up with your doctor in 1 week Patient Instructions: Back Pain, Adult, [id number] Additional Instructions: You were seen for low back pain with sciatica. Please continue following up wi th your primary care doctor for an outpatient MRI if they order one. Take the prescribed medications as ordered. Scripts Hydrocodone/Acetaminophen (Hydrocodone-Acetamin 5-325 mg) 1 Each Tablet 1 EACH PO Q6HRS, #14 TAB Prov: CHATA VILLALOBOS APRN 04/05/20 Methylprednisolone (MEDROL) 4 Mg Tab.ds.pk 1 PKG PO UD, #1 PKG Prov: CHATA VILLALOBOS APRN 04/05/20 Cyclobenzaprine Hcl (CYCLOBENZAPRINE HCL) 10 Mg Tablet 1 TAB PO TID, #30 TAB Prov: CHATA VILLALOBOS APRN 04/05/20 CHATA VILLALOBOS APRN Apr 05, 2020 12:05
[2020-04-05 12:32] LABS: U PREG PATIENT NEGATIVE (NEG)
== END 2020-04-05 12:41 | disposition home or self-care (01) ==
LOC: ER 10:54
DX: M54.42 Lumbago with sciatica, left side (principal); F32.9 Major depressive disorder, single episode, unspecified; F17.200 Nicotine dependence, unspecified, uncomplicated; Z90.89 Acquired absence of other organs; Z98.890 Other specified postprocedural states; Z88.1 Allergy status to other antibiotic agents
CPT/HCPCS: 81025; 96372; 99283; J1885; J7512

== ENCOUNTER → 2020-04-11 | Outpatient (CLI) | payer BC ==
[2020-04-05 11:06] VITALS: BP 137/80
[~2020-04-11] MED LIST changes: +CYCL10TA2 PO; +HYDR-2759 PO; +METH4TAB2 PO
--- NOTE | 2020-04-11 11:02 | KCIC ---
MR LUMBAR SPINE WO [id number] History: Reason: LUMBAGO / Spl. Instructions: / History: Lower back pain for one month. NKI. Technique: Multiplanar, multi sequential MR imaging was performed of the lumbar spine. Comparison: CT March 24, 2018 Findings: Normal vertebral body height and alignment. No fracture. Conus terminates at the normal location. No evidence of nerve root clumping. Fatty infiltration of th e filum terminale. L1-L2: No canal or neuroforaminal narrowing. L2-L3: No canal or neuroforaminal narrowing. L3-L4: Minimal disc bulge. No canal or neuroforaminal narrowing. L4-L5: Minimal disc bulge. No canal or neuroforaminal narrowing. Mild facet arthropathy. L5-S1: Minimal disc bulge. Mild facet arthropathy. No canal or neuroforaminal narrowing. Impression: 1. Minimal lumbar spondylosis. Electronically signed by: William Chan DO (04/11/2020 10:59 AM) [id number]
== END ==
LOC: KCIC MRI 09:39
PROVIDERS: ATTEND Physician Assistant Medical
DX: M47.816 Spondylosis without myelopathy or radiculopathy, lumbar region (principal)
CPT/HCPCS: 72148